=== PATIENT | male | born 1950 | race Caucasian/White ===

== ENCOUNTER 2020-09-14 04:45 | Day surgery (SDC) | payer OTHER, MEDICARE ==
[2020-09-09 12:51] VITALS: BMI 28.6
[2020-09-14 10:55] VITALS: TEMP 99
[2020-09-14 11:35] VITALS: BP 121/67; PULSE 57
== END 2020-09-14 11:55 | disposition home or self-care (01) ==
LOC: JASU-ENDO 04:45
PROVIDERS: ATTEND Internal Medicine Gastroenterology
PROC: 0DBK8ZX Excision of Ascending Colon, Via Natural or Artificial Opening Endoscopic, Diagnostic (ICD-10-PCS; principal; 2020-09-14 09:00)
DX: Z12.11 Encounter for screening for malignant neoplasm of colon (principal); D12.2 Benign neoplasm of ascending colon; K57.30 Diverticulosis of large intestine without perforation or abscess without bleeding; K64.8 Other hemorrhoids